=== PATIENT | female | born 1985 | race Caucasian/White ===

== ENCOUNTER 2016-11-21 11:48 | Inpatient (IN) | payer BC ==
[~2016-11-21] VITALS: Ht 168.9 cm; Wt 103.5 kg
[2016-11-21] MEDS ORDERED: LACTATED RINGER'S 1000ML 1,000 ML IV PRN (12:05)
[2016-11-21] MEDS ORDERED: PATIENT'S ALLERGY INFO NEEDS ENTERED SCH (12:15)
[2016-11-21] MEDS ORDERED: LACTATED RINGER'S 1000ML 500 ML IV PRN ×2 (12:22→22:58)
[2016-11-21] MEDS ORDERED: OXYTOCIN 30 UNITS/500ML NSS IV PRN (12:30)
[2016-11-21 13:04] LABS: HEMATOCRIT 37.9 % (37-47); MEAN CELL VOLUME 86.7 fL (80-100); MEAN CORPUSCULAR HEMOGLOBIN 29.7 pg (25-34); MEAN CORPUSCULAR HGB CONC 34.3 g/dl (32-36); MEAN PLATELET VOLUME 11.8 fL (7.4-10.4); PLATELET COUNT 150 K/uL (130-400); RED BLOOD COUNT 4.37 M/uL (4.2-5.4); WHITE BLOOD COUNT 12.38 K/uL (4.8-10.8)
[2016-11-21 15:54] VITALS: Ht 168.9 cm; Wt 103.5 kg
[2016-11-21] MEDS ORDERED: PRENTAB26 PO (15:58)
[2016-11-21] MEDS: BUTORPHANOL TARTRATE 1 MG/ML VIAL IV PRN ×2 (16:41→18:58)
[2016-11-21] MEDS: LACTATED RINGER'S 1000ML 1,000 ML IV SCH ×2 (19:12→23:09)
[2016-11-21] MEDS ORDERED: FENTANYL CITRATE INJ 50 MCG/1 ML 2 ML VIAL ONE (21:53)
[2016-11-21] MEDS ORDERED: BUPIVACAINE 0.25% 30 ML VIAL ONE (21:53)
[2016-11-21] MEDS ORDERED: FENTANYL 2MCG/ML ROPIV 1.25MG/ML 100ML BAG EPI ONE (21:53)
[2016-11-21] MEDS ORDERED: EpHEDrine SULFATE INJ 50 MG/ML AMP ONE (21:53)
[2016-11-21] MEDS ORDERED: NALOXONE HCL INJ 1 MG in SODIUM CHLORIDE 0.9% 1000ML 1,000 ML IV PRN (22:58)
[2016-11-21] MEDS ORDERED: DiphenhydrAMINE HCL 50 MG/ML VIAL IV PRN (23:00)
[2016-11-21] MEDS ORDERED: PROMETHAZINE HCL INJ 6.25 MG in SODIUM CHLORIDE 0.9% 50ML 50 ML IV PRN (23:00)
[2016-11-21] MEDS ORDERED: NALBUPHINE HCL INJ 10 MG/ML AMP IV PRN (23:00)
[2016-11-21] MEDS ORDERED: FENTANYL 2MCG/ML ROPIV 1.25MG/ML 100ML BAG EPI PRN (23:00)
[2016-11-21] MEDS ORDERED: ONDANSETRON INJ 2 MG/ML 2 ML VIAL IV PRN (23:00)
[2016-11-21] MEDS ORDERED: NALOXONE HCL INJ 0.4 MG/1 ML VIAL/CARP IV PRN (23:00)
[2016-11-21] MEDS ORDERED: EpHEDrine SULFATE INJ 50 MG/ML AMP IV PRN (23:00)
--- NOTE | 2016-11-21 23:22 | HISTORY & PHYSICAL EXAMINATION ---
DATE OF ADMISSION: 11/21/2016 CHIEF COMPLAINT: Oligohydramnios and postdates. HISTORY OF PRESENT ILLNESS: The patient is a 31-year-old 1, para 0, at 41 weeks and 3 days gestation, who was sent over from labor and delivery for induction of labor secondary to oligohydramnios and postdates. At today's office visit, she had an ultrasound with an RUPAL of 3.6 and a nonstress test that was reactive. On admission, she was found to be 3 cm dilated, 70% effaced, and -2 station. heart tones are category 1. Her care has been uncomplicated and she is GBS negative. PAST MEDICAL HISTORY: The patient denies any previous medical history. PAST SURGICAL HISTORY: She had her wisdom teeth extracted. SOCIAL HISTORY: The patient denies tobacco, alcohol or drug use. MEDICATIONS: vitamins. ALLERGIES: LAVENDER OIL, ASPIRIN, CODEINE. LABORATORY DATA: Blood type is A positive, group B strep negative, rubella immune, hepatitis B surface antigen negative, RPR nonreactive. PHYSICAL EXAMINATION: VITAL SIGNS: Blood pressure is 136/65, heart rate of 89, respiration rate of 18, temperature of 98.1. GENERAL: The patient is awake, alert and oriented x3. She is in no acute distress. HEART: Regular rate and rhythm. LUNGS: Clear to auscultation bilaterally. ABDOMEN: Gravid uterus, appropriate for gestational age. Bowel sounds present x4. EXTREMITIES: No clubbing, cyanosis or calf tenderness. VAGINA: She is 3 cm, 70% effaced, and -2 station. heart tones category 1. ASSESSMENT AND PLAN: A 31-year-old 1, para 0, at 41 weeks and 3 days gestation, will be admitted to labor and delivery for induction of labor secondary to oligohydramnios and postdates. Will begin with oxytocin per protocol. She may have her epidural upon request and anticipate vaginal delivery. [facility]
[2016-11-22] VITALS (19 sets, daily range): BP systolic 122–147; BP diastolic 64–89; PULSE 66–88; TEMP 36.5–37.3; O2SAT 97–100
[2016-11-22] MEDS ORDERED: CEFAZOLIN IV 3,000 MG in DEXTROSE 5% 50ML 50 ML IV SCH (06:00)
[2016-11-22] MEDS ORDERED: CITRIC ACID/SODIUM CITRATE 15 ML UDC PO ONE (06:00)
[2016-11-22] MEDS ORDERED: LIDOCAINE/EPINEPHRINE 2% 1:200,000 20 ML SDV ONE (06:18)
[2016-11-22] MEDS ORDERED: OXYTOCIN INJ 10 UNITS/ML VIAL ONE ×4 (06:18→07:00)
[2016-11-22] MEDS ORDERED: FENTANYL CITRATE INJ 50 MCG/1 ML 2 ML VIAL ONE (06:19)
[2016-11-22] MEDS ORDERED: MoRPHine SULFATE PF 1 MG/ML 10 ML AMP/VIAL ONE (06:19)
[2016-11-22] MEDS ORDERED: PHENYLEPHRINE 100MCG/ML 5ML SYR ONE (06:37)
[2016-11-22] MEDS ORDERED: KETOROLAC TROMETHAMINE 30 MG/ML VIAL ONE (07:01)
[2016-11-22] MEDS ORDERED: LACTATED RINGER'S 1000ML 1,000 ML IV SCH (07:09)
[2016-11-22] MEDS ORDERED: KETOROLAC TROMETHAMINE 30 MG/ML VIAL IV. PRN ×2 (07:15→07:30)
[2016-11-22] MEDS ORDERED: DIPHTHERIA/TETANUS/PERTUSSIS 0.5 ML SYR/VIAL IM. ONE (07:15)
[2016-11-22] MEDS ORDERED: ZOLPIDEM TARTRATE 5 MG TAB PO PRN (07:15)
[2016-11-22] MEDS ORDERED: SUPERCREAM 0.870 % 15GM JAR EXT PRN (07:15)
[2016-11-22] MEDS ORDERED: BENZOCAINE 20% AER SPR 82.5 GM CAN EXT PRN (07:15)
[2016-11-22] MEDS ORDERED: SENNA 8.6 MG TAB PO PRN (07:15)
[2016-11-22] MEDS ORDERED: MAGNESIUM HYDROXIDE SUSP 30 ML UDC PO PRN (07:15)
[2016-11-22] MEDS ORDERED: LANOLIN OINT EXT PRN ×2 (07:15)
[2016-11-22] MEDS ORDERED: ONDANSETRON INJ 2 MG/ML 2 ML VIAL IV PRN (07:15)
[2016-11-22] MEDS ORDERED: OXYCODONE/ACETAMINOPHEN 5-325 TAB PO PRN ×2 (07:15)
[2016-11-22] MEDS ORDERED: HYDROCORTISONE ACETATE 25 MG SUPP PR PRN (07:15)
--- NOTE | 2016-11-22 07:15 | [facility] Post Operative Brief Note ---
Immediate Operative Summary Operative Date November 22, 2016. Pre-Operative Diagnosis IUP 41.4, oligohydramnios, Interolerance to Labor Post-Operative Diagnosis Same Procedure(s) Performed Primary Caesarean Section of Life Female child at [address] Reddy Sewing Machine Tester Surgeon(s) Prema Moss RN, Dr. Brar Estimated Blood Loss 500 Findings Patient delivered a viable female infant at 0628 via primary section in the vertex position. APGARs and weight pending. Meconium stained fluid noted. Cord blood and gases obtained. Intact placenta with 3 VC delivered manually and sent to pathology. Grossly normal uterus and bilateral tubes and ovaries noted. Patient tolerated the surgery well and was sent to recovery with stable vital signs. Fluids (cc crystalloids) 1500 Specimens Placenta Exam Cord Blood cord gases Drains Borges to gravity Anesthesia Epidural bolus Complication(s) None Disposition L&D
[2016-11-22] MEDS ORDERED: MEPERIDINE HCL 25 MG/ML CARP IV PRN (07:30)
[2016-11-22] MEDS ORDERED: MoRPHine SULFATE 2 MG/ML CARP IV PRN (07:30)
[2016-11-22] MEDS ORDERED: NO NARCOTICS OR SEDATIVES SCH (07:30)
[2016-11-22] MEDS ORDERED: CONTINUE MEDICATION ONE (07:30)
[2016-11-22] MEDS ORDERED: DiphenhydrAMINE HCL 50 MG/ML VIAL IV PRN (07:30)
[2016-11-22] MEDS ORDERED: MoRPHine SULFATE PF 1 MG/ML 10 ML AMP/VIAL EPI PRN (07:30)
--- NOTE | 2016-11-22 07:31 | Anesthesia Procedure Note ---
Anesthesia Epidural Removal Nt Date & Time November 22, 2016 at 07:31 Vital Signs Pain Intensity: 0.0 Notes Mental Status: alert / awake / arousable, participated in evaluation Nausea / Vomiting: adequately controlled Pain: adequately controlled Airway Patency, RR, SpO2: stable & adequate BP & HR: stable & adequate Hydration State: stable & adequate Neuraxial Anesthesia: was administered Anesthetic Complications: no major complications apparent, pt satisfied with anesthetic care Epidural: removed without complications, with tip intact
[2016-11-22] MEDS: DOCUSATE SODIUM 100 MG CAP PO SCH ×2 (08:00→20:13)
[2016-11-22] MEDS: PRENATAL VITAMIN TAB PO SCH (08:00)
[2016-11-22] MEDS: FERROUS SULFATE 325 MG TAB PO SCH (08:00)
[2016-11-22] MEDS: OXYTOCIN INJ 30 UNITS in LACTATED RINGER'S 1000ML 1,000 ML IV SCH ×2 (08:09→16:53)
--- NOTE | 2016-11-22 08:19 | OPERATIVE REPORT ---
DATE OF OPERATION: 11/22/2016 PREOPERATIVE DIAGNOSES: 1. Intrauterine at 41 weeks and 4 days gestation. 2. Oligohydramnios. 3. intolerance to labor. POSTOPERATIVE DIAGNOSES: Same. OPERATIVE PROCEDURE: Primary low transverse section. SURGEON: Dr. Reddy. SCIENCE TUTOR: Prema Moss RN and Dr. Brar. ANESTHESIA: Epidural bolus. ESTIMATED BLOOD LOSS: 500 mL. IV FLUIDS: 1500 mL crystalloids. URINE OUTPUT: 200 mL clear yellow urine. SPECIMENS: Placenta, cord blood and cord gases obtained. DRAINS: Borges to gravity. COMPLICATIONS: None. DISPOSITION: To labor and delivery. OPERATIVE FINDINGS: The patient delivered a viable female infant at 6:28 a.m. on 11/22/2016 via primary section in the vertex position. Apgars and weight were pending. Please see fraternity adviser's notes for further baby assessment. Meconium stained fluid noted. Cord blood and gases obtained, intact placenta with 3-vessel cord was delivered manually and sent to pathology at 6:30 a.m. Grossly normal uterus and bilateral tubes and ovaries were noted. The patient tolerated the surgery well and was sent to recovery with stable vital signs. INDICATIONS FOR PROCEDURE: The patient is a 31-year-old 1, para 0 at 41 weeks and 4 days gestation who presented to labor and delivery on the afternoon of 11/21/2016 for an induction of labor secondary to oligohydramnios with an RUPAL of 3.6 in the office. On arrival, she was found to be 3 cm, 60% effaced and -3 station. Oxytocin was began per protocol. She received an epidural for anesthesia. Artificial rupture of membranes was performed at 1828 with light meconium stained fluid noted. She reached 9.5 cm, 100% effaced and 0 station. Due to prolonged decelerations and late decelerations, the decision was made to proceed with a primary section. Risks, benefits and alternatives were discussed with the patient and informed consent was obtained. OPERATIVE PROCEDURE IN DETAIL: The patient was taken to the operating room where her epidural was bolused. She was then placed in the dorsal supine position with a left lateral tilt and was prepped and draped in a manner appropriate for the procedure. Once anesthesia was found to be adequate, a Pfannenstiel skin incision was made 2 fingerbreadths above the pubic symphysis and was carried down through to a layer of the rectus fascia. The fascia was nicked in the midline and extended bilaterally with curved Lawson scissors. The superior aspect of the fascial incision was grasped with Bridget clamps, elevated, and the rectus muscles were dissected off with the use of the curved Lawson scissors and electrocautery. Likewise, the inferior aspect of the fascial incision was grasped with Bridget clamps, elevated, and the rectus muscles were dissected off with the use of the curved Lawson scissors and electrocautery. The rectus muscles were in midline and the peritoneum was grasped with hemostats x2 and entered with Metzenbaum scissors. Peritoneal incision was then extended cephalocaudally with gentle traction. The bladder blade was then placed within the abdomen. The vesicouterine peritoneum was identified and a bladder flap was created with Metzenbaum scissors and digital traction. The bladder flap was reincorporated beneath the [place] blade. A transverse incision was made on the uterus and extended bilaterally with digital traction. The head was then identified and delivered through the incision along with the rest of the body. Nuchal cord x1 was reduced at delivery. Baby was bulb suctioned at delivery. Cord was clamped x2 and cut. The baby was immediately handed to an awaiting fraternity adviser for further evaluation and management. Please see their notes for baby assessment. Cord blood and gases were obtained along with cord blood. An intact placenta with 3-vessel cord was then delivered through the incision manually. The uterus was then exteriorized and wrapped in a moist laparotomy sponge. The uterus was then cleared of any trailing membranes and debris with the laparotomy sponge. The incision was then grasped with ring forceps at 4 quadrants and was suture-ligated with 0 Vicryl suture in a continuous locking fashion. A second 0 Vicryl suture was used in imbricating fashion to ensure hemostasis. Any residual bleeding was suture-ligated with 0 Vicryl suture in a [id number] interrupted fashion. The posterior cul-de-sac was then irrigated with warm saline solution. Attention to the uterine incision was performed noting excellent hemostasis. The bladder flap was reapproximated to the lower uterine segment with 3-0 Vicryl suture in a continuous running fashion. The uterus was then placed back within its normal anatomic position within the abdomen. The case anterior cul-de-sac was then irrigated with warm saline solution. Again, the uterine incision was noted to be hemostatic. All instruments were then removed from the abdomen. The peritoneum was then grasped with Heather clamps and was closed with 2-0 Vicryl suture in continuous running fashion. The rectus fascia was then closed with 0 Vicryl suture in continuous running fashion. Subcutaneous tissue was reapproximated with 2-0 Vicryl suture in continuous running fashion. Skin was then closed with doreen. Excellent hemostasis was noted through all tissue layers. All sponge and instrument counts were found to be correct x2. The patient tolerated the procedure well and was sent to recovery with stable vital signs. I attest to the content of the Intraoperative Record and any orders documented therein. Any exceptio ns are noted below.
[2016-11-22] MEDS: SIMETHICONE 80 MG CHEW PO SCH ×4 (09:00→20:13)
--- NOTE | 2016-11-22 13:23 | Anesthesiology Progress Note ---
Anesthesia Post Op Note Date & Time November 22, 2016 at 13:23 Vital Signs Pain Intensity: 0.0 Notes Mental Status: alert / awake / arousable, participated in evaluation Pt Amnestic to Procedure: Yes Nausea / Vomiting: adequately controlled Pain: adequately controlled Airway Patency, RR, SpO2: stable & adequate BP & HR: stable & adequate Hydration State: stable & adequate Neuraxial Anesthesia: was administered, sensory block resolved Anesthetic Complications: no major complications apparent
--- NOTE | 2016-11-22 21:17 | OB/GYN Progress Note ---
TAX REPRESENTATIVE Progress Note Date of Service: November 22, 2016. Patient is seen and examined She c/o rash on skin of her abdomen, over the dressing Started 1/2 hour ago, not itchy She has been itchy all over her body No CP/SOB/ Dizziness Pain is under control She visited her bay in nursery Date Time Temp Pulse Resp B/P Pulse Ox O2 Delivery O2 Flow Rate FiO2 11/22/16 20:10 36.9 88 20 147/89 Room Air 11/22/16 19:00 18 100 11/22/16 18:02 16 100 11/22/16 17:00 16 100 11/22/16 16:00 16 98 11/22/16 15:50 36.7 72 16 122/69 98 Room Air 11/22/16 15:45 98 Room Air 11/22/16 15:00 18 97 11/22/16 14:00 18 100 11/22/16 13:00 18 97 11/22/16 12:00 18 98 11/22/16 11:10 37.1 66 18 129/64 97 Room Air 11/22/16 11:00 18 97 11/22/16 10:00 37.3 69 18 136/67 97 Room Air 11/22/16 10:00 18 97 11/22/16 10:00 97 Room Air Abd: soft, NT, fundus firm, below U, dressing dry and intact, there is mild erythematous diffuse rash over dressing up above umbilicus ( area of skin prep) Most likely allergic reaction to skin prep Will apply low dose 1% hydrocortisone cream and remove dressing in am 24 hour from surgery Continue to monitor closely
[2016-11-22] MEDS: HYDROCORTISONE 1% CR 30 GM TUBE EXT SCH (23:45)
[2016-11-23] VITALS (7 sets, daily range): BP systolic 132–137; BP diastolic 81–92; PULSE 81–94; TEMP 36.6–36.8; O2SAT 97–98
[2016-11-23] MEDS ORDERED: DC INTRASPINAL MORPHINE SCH (01:00)
[2016-11-23] MEDS: IBUPROFEN 600 MG TAB PO PRN ×4 (05:40→21:03)
[2016-11-23 06:13] LABS: BASO % 0.1 %; BASO ABS # 0.01 K/uL (0-0.2); COMPLETE YES; EOS % 0.2 %; HEMATOCRIT 30.3 % (37-47); IG% 0.2 %; LYMPH % 12.7 %; LYMPH ABS # 1.73 K/uL (1.2-3.4); MEAN CELL VOLUME 88.1 fL (80-100); MEAN CORPUSCULAR HEMOGLOBIN 30.5 pg (25-34); MEAN CORPUSCULAR HGB CONC 34.7 g/dl (32-36); MEAN PLATELET VOLUME 10.6 fL (7.4-10.4); MONO % 5.4 %; NEUT % 81.4 %; PLATELET COUNT 115 K/uL (130-400); RED BLOOD COUNT 3.44 M/uL (4.2-5.4); WHITE BLOOD COUNT 13.61 K/uL (4.8-10.8)
--- NOTE | 2016-11-23 07:32 | OB/GYN Progress Note ---
ALEMITE OPERATOR Progress Note Date of Service November 23, 2016. Subjective conversation w/ patient, physical exam Ambulation: ambulating normally Voiding: no voiding problems Passing Gas: Yes Diet Tolerance: Regular Diet Lochia: Small Feeding Type: Breast Feeding Pain: 07/26 Notes: Doing well, no concerns. Pain well controlled. Lochia minimal. Ambulating without difficulty. Tolerating regular diet, +flatus, -BM. Objective Vital Signs Date Time Temp Pulse Resp B/P Pulse Ox O2 Delivery O2 Flow Rate FiO2 11/23/16 04:50 36.8 94 18 137/89 98 Room Air 11/23/16 01:00 18 97 11/23/16 00:00 20 98 11/22/16 23:45 36.5 67 20 130/85 Room Air 11/22/16 23:45 98 Room Air 11/22/16 23:00 20 98 11/22/16 22:00 19 100 11/22/16 21:00 19 100 11/22/16 20:10 36.9 88 20 147/89 Room Air 11/22/16 20:00 18 98 11/22/16 19:00 18 100 11/22/16 18:02 16 100 11/22/16 17:00 16 100 11/22/16 16:00 16 98 11/22/16 15:50 36.7 72 16 122/69 98 Room Air 11/22/16 15:45 98 Room Air 11/22/16 15:00 18 97 11/22/16 14:00 18 100 11/22/16 13:00 18 97 11/22/16 12:00 18 98 11/22/16 11:10 37.1 66 18 129/64 97 Room Air 11/22/16 11:00 18 97 11/22/16 10:00 37.3 69 18 136/67 97 Room Air 11/22/16 10:00 18 97 11/22/16 10:00 97 Room Air Physical Exam General Appearance: WELL-APPEARING Respiratory/Chest: chest non-tender, lungs clear Cardiovascular: regular rate, rhythm Abdomen: normal bowel sounds, soft Fundus: Firm Incision Description: Clean, Dry & Intact Extremities: normal range of motion, no calf tenderness Laboratory Results Last 24 Hours Test 11/23/16 06:06 White Blood Count 13.61 K/uL Red Blood Count 3.44 M/uL Hemoglobin 10.5 g/dL Hematocrit 30.3 % Mean Corpuscular Volume 88.1 fL Mean Corpuscular Hemoglobin 30.5 pg Mean Corpuscular Hemoglobin Concent 34.7 g/dl Platelet Count 115 K/uL Mean Platelet Volume 10.6 fL Neutrophils (%) (Auto) 81.4 % Lymphocytes (%) (Auto) 12.7 % Monocytes (%) (Auto) 5.4 % Eosinophils (%) (Auto) 0.2 % Basophils (%) (Auto) 0.1 % Neutrophils # (Auto) 11.08 K/uL Lymphocytes # (Auto) 1.73 K/uL Monocytes # (Auto) 0.73 K/uL Eosinophils # (Auto) 0.03 K/uL Basophils # (Auto) 0.01 K/uL RDW Standard Deviation 47.1 fL RDW Coefficient of Variation 14.6 % Immature Granulocyte % (Auto) 0.2 % Immature Granulocyte # (Auto) 0.03 K/uL Assessment and Plan Post-Op Day Number: 1 Continue Routine Care: -Incision dressing removed and is c/d/i -Advance activity as tolerated. -Continue routine postop care
[2016-11-23] MEDS: DOCUSATE SODIUM 100 MG CAP PO SCH ×2 (08:08→20:05)
[2016-11-23] MEDS: FERROUS SULFATE 325 MG TAB PO SCH (08:08)
[2016-11-23] MEDS: PRENATAL VITAMIN TAB PO SCH (08:08)
[2016-11-23] MEDS: HYDROCORTISONE 1% CR 30 GM TUBE EXT SCH ×2 (08:09→20:06)
[2016-11-23] MEDS: SIMETHICONE 80 MG CHEW PO SCH ×4 (08:09→20:05)
[2016-11-23] MEDS: BISACODYL 5 MG TABEC PO SCH (22:15)
[2016-11-24 06:28] LABS: HEMATOCRIT 28.3 % (37-47)
[2016-11-24] MEDS ORDERED: BISACODYL 10 MG SUPP PR PRN (07:15)
[2016-11-24 07:30] VITALS: BP 125/81; PULSE 80; TEMP 36.6; O2SAT 99
[2016-11-24] MEDS: PRENATAL VITAMIN TAB PO SCH (07:34)
[2016-11-24] MEDS: FERROUS SULFATE 325 MG TAB PO SCH (07:34)
[2016-11-24] MEDS: HYDROCORTISONE 1% CR 30 GM TUBE EXT SCH ×2 (07:34→20:46)
[2016-11-24] MEDS: DOCUSATE SODIUM 100 MG CAP PO SCH ×2 (07:34→20:45)
[2016-11-24] MEDS: SIMETHICONE 80 MG CHEW PO SCH ×4 (07:34→20:46)
[2016-11-24] MEDS: IBUPROFEN 600 MG TAB PO PRN ×3 (07:35→22:34)
--- NOTE | 2016-11-24 09:02 | OB/GYN Progress Note ---
LANDSCAPE HORTICULTURE INSTRUCTOR Progress Note Date of Service November 24, 2016. Subjective conversation w/ patient, physical exam Ambulation: ambulating normally Voiding: no voiding problems Passing Gas: Yes Diet Tolerance: Clear Liquids Lochia: Moderate Feeding Type: Breast Feeding Review of Systems Constitutional: No chills, No fatigue, No fever, No problem reported, No sweats , No weakness, No weight loss Respiratory: No cough, No dyspnea at rest, No dyspnea on exertion, No hemoptysis, No problem reported, No shortness of breath, No sputum, No wheezing Cardiac: No PND, No chest pain, No claudication, No edema, No orthopnea, No palpitations, No problem reported Breast: No breast lump, No breast pain, No change in shape, No nipple discharge , No problem reported, No see HPI Abdomen: No GI bleeding, No constipation, No diarrhea, No nausea, No pain, No problem reported, No vomiting Female : No abnormal vaginal bleeding, No dysuria, No hematuria, No incontinence, No problem reported, No see HPI, No urinary frequency, No vaginal discharge Objective Vital Signs Date Time Temp Pulse Resp B/P Pulse Ox O2 Delivery O2 Flow Rate FiO2 11/24/16 07:30 36.6 80 18 125/81 99 Room Air 11/24/16 07:30 99 Room Air 11/23/16 23:45 36.6 81 20 137/84 98 Room Air 11/23/16 23:45 98 Room Air 11/23/16 16:00 36.7 91 18 137/92 Room Air 11/23/16 15:20 98 Room Air Physical Exam General Appearance: WELL-APPEARING, WD/WN Respiratory/Chest: chest non-tender, lungs clear, normal breath sounds, no respiratory distress, no accessory muscle use Cardiovascular: regular rate, rhythm, no edema, no gallop, no JVD, no murmur Abdomen: normal bowel sounds, non tender, soft, no organomegaly, no pulsatile mass Fundus: Firm Incision Description: Clean, Dry & Intact Extremities: normal range of motion, non-tender, normal inspection, no pedal edema, no calf tenderness Laboratory Results Last 24 Hours Test 11/24/16 06:06 Hemoglobin 9.7 g/dL Hematocrit 28.3 % Assessment and Plan Post-Op Day Number: 1 Continue Routine Care: c/sec day #2 pt doing well repeat H/H anticipate disch tomorrow
[2016-11-24 12:34] LABS: HEMATOCRIT 29.1 % (37-47)
[2016-11-24 15:30] VITALS: BP 145/82; PULSE 93; TEMP 36.8; O2SAT 99
[2016-11-24] MEDS: BISACODYL 5 MG TABEC PO SCH (22:34)
[2016-11-25 00:05] VITALS: BP 145/85; PULSE 87; TEMP 36.4; O2SAT 98
[2016-11-25 08:00] VITALS: BP 142/96; PULSE 91; O2SAT 98
[2016-11-25] MEDS: HYDROCORTISONE 1% CR 30 GM TUBE EXT SCH (08:00)
[2016-11-25] MEDS ORDERED: OXYC-57 PO (08:20)
--- NOTE | 2016-11-25 08:21 | Discharge Instructions ---
Discharge Instructions Date of Service November 25, 2016. Admission Reason for Admission: Oligohydramnios, Post Dates Discharge Discharge Diagnosis / Problem: term delivered Discharge Goals Goal(s): Routine recovery after Activity Recommendations Activity Limitations: as noted below Exercise/Sports Limitations: gradually increase as tolerated May Resume Sexual Activity: after follow-up appointment Shower/Bathe: no limitations Driving or Machine Use: . Instructions / Follow-Up Instructions / Follow-Up ACTIVITY RECOMMENDATIONS: * Gradual return to full activity over the next 2-3 weeks. * No lifting - nothing heavier than baby over the next 2-3 weeks. * Do not engage in vigorous exercise, sexual activity or sports until cleared by your physician. * Do not drive or operate any motorized equipment until cleared by your physician. * You may shower/bathe daily. BREAST CARE: If you are not breast feeding: * Wear a supportive bra 24 hours a day for one to two weeks. * Avoid stimulating your breasts and nipples as much as possible during the first few weeks after delivery. * When taking a shower, have the warm water hit your back, not breasts. * When your breasts feel full, apply ice packs. Usually three to four times a day helps ease the discomfort. * Take a mild pain medication (Tylenol/Motrin) when you are uncomfortable. If breast feeding: * Use breast milk to lubricate nipples. Lansinoh cream may be used for sore nipples. You do not need to remove cream prior to breast feeding. If using a different brand of cream, check the label for directions regarding removal of cream prior to nursing. * Wear a supportive bra. * If having problems with breasts or breast feeding, call a workday financials consultant or your health care provider. OVER THE COUNTER MEDICATION: * For discomfort or pain, you may use Acetaminophen (Tylenol), Ibuprofen (Advil ), or Naproxen (Aleve) following the package directions. * For constipation you may use Colace following the package directions. SPECIAL CARE INSTRUCTIONS: When you are discharged from the hospital, it is important for you to follow the instructions listed below: * During the first week at home, you should be able to care for yourself and your baby. In addition, the usual light household activities are encouraged. * Limit your activities to the way you feel. Do not try to clean the house or move furniture. Be sensible. * If you actively engage in sports and have done so up until the time of your delivery, you may resume these activities as soon as you feel able. This may take up to one month or even longer. Use good judgment. * Continue to take your vitamins for at least six weeks after the of your baby. * Your diet need not be limited unless you were on a special diet before your delivery. Breast-feeding mothers need around 2500 calories per day and at least 64-80 ounces of fluid per day (8 to 10 glasses). * You should eat foods from the four major food groups. Crash diets or fad diets are to be avoided. Eating lean meats, fresh fruits and vegetables, low-fat dairy products, high fiber foods and a regular exercise program, will help you get back to your pre- weight without putting your health at risk. * Constipation is sometimes a problem after delivery. Take a mild laxative as needed. If breast feeding, Milk of Magnesia is acceptable to use. You may use a suppository or Fleets enema if no episiotomy. * A daily shower or tub bath is suggested. Be sure to thoroughly and gently dry the perineum. * A bloody vaginal discharge will usually continue until around four weeks post . A small amount of bleeding may continue for as long as six weeks. Vaginal discharge changes from the bright red bleeding after delivery to pink then brownish and finally yellowish-pink before becoming white and disappearing. * Bleeding may increase with activity. Your first period may come in 4-8 weeks. If you are breast feeding, your period may be delayed even longer. * Kosse (sex) can begin whenever both you and your partner feel comfortable and do not have any form of genital infection. It is recommended that you wait at least six weeks for internal and external healing to occur. If you have questions, please talk to your health care practitioner. A condom should be used to prevent infection and . * Foreplay, gentle intercourse and lubrication is very important the first several times to prevent pain. A water-based lubricant such as K-Y jelly or Astroglide may be used. * Tampons and/or Douching should be avoided until after six weeks check-up. * If you have RH negative blood and your baby is RH positive, you will receive RHOGAM by injection prior to discharge. The nurse will give you a card to keep with you that has the date and place that you received RHOGAM after delivery. * During your care, you had a Rubella screen done to check for the presence of rubella antibodies in your blood. If your test was negative, you will receive a Rubella vaccine prior to discharge. This vaccine may cause a fever, soreness at the injection site and flu-like symptoms. If these symptoms persist, notify your health care practitioner. is not advised for three months after a Rubella vaccine. * Verbalizes understanding of car seat law as reviewed with patient nursing. * Car Seat hand-out given and reviewed with patient by nursing. * Shaken baby information reviewed with patient by nursing. Call you doctor if: * Heavy bleeding (saturating several pads an hour) or passing clots the size of your fist. * A fever >101 degrees F (38.3 degrees C) on two occasions four hours apart and /or chills. * Unusual pain in the pelvic or vaginal areas. Pain should improve each day . * Call the doctor for any increased redness, drainage or swelling around the incision and any pain unrelieved by prescribed pain medication. * Any signs or symptoms of phlebitis (possible blood clots forming in the veins ): leg pain, warm, red or swollen area on leg. * "Baby Blues" lasting longer than two weeks. If you have any questions or concerns, call your health care practitioner at . FOLLOW-UP VISIT: * Incision check (staple removal) in 1 week. Please call doctor's office at to set up appointment. * Please call the office at to schedule a 6 week examination. It is important you keep this appointment. * It is important for you to make arrangements for either yearly or twice yearly check-ups thereafter. Current Hospital Diet Patient's current hospital diet: Regular OB Diet Discharge Diet Recommended Diet: Regular OB Diet Procedures Procedures Performed: Primary Caesarean Section of Life Female child at 0628 Pending Studies Studies pending at discharge: no Medical Emergencies . Who to Call and When: Medical Emergencies: If at any time you feel your situation is an emergency, please call 911 immediately. . Non-Emergent Contact Non-Emergency issues call your: Primary Care Provider . . "Provider Documentation" section prepared by Mauri Pope. . VTE Core Measure Inpt VTE Proph given/why not?: Treatment not indicated
--- NOTE | 2016-11-25 08:24 | Surgery Progress Note ---
Surgery Progress Note Date of Service November 25, 2016. Subjective Post OP Day: 3 + ambulating, + diet, + feeling well, + flatus Objective Vital Signs: Date Time Temp Pulse Resp B/P Pulse Ox O2 Delivery O2 Flow Rate FiO2 11/25/16 00:05 98 Room Air 11/25/16 00:05 36.4 87 16 145/85 98 Room Air 11/24/16 20:50 Room Air 11/24/16 15:30 99 Room Air 11/24/16 15:30 36.8 93 18 145/82 99 Room Air General Appearance: no apparent distress Abdomen: non tender, non distended, soft Incision(s): clean, dry, intact Extremities: non-tender, normal inspection, no pedal edema, no calf tenderness Laboratory Results: Results Past 24 Hours Test 11/24/16 12:06 Range/Units Hemoglobin 9.6 12.0-16.0 g/dL Hematocrit 29.1 37-47 % Assessment & Plan regular diet POD#3 patient discharged home and will go to nesting
[2016-11-25] MEDS: IBUPROFEN 600 MG TAB PO PRN (08:32)
[2016-11-25] MEDS: DOCUSATE SODIUM 100 MG CAP PO SCH (08:32)
[2016-11-25] MEDS: PRENATAL VITAMIN TAB PO SCH (08:33)
[2016-11-25] MEDS: FERROUS SULFATE 325 MG TAB PO SCH (08:33)
[2016-11-25] MEDS: SIMETHICONE 80 MG CHEW PO SCH ×3 (08:33→18:17)
[2016-11-25 14:11] VITALS: TEMP 36.7
[2016-11-25 16:10] VITALS: BP 129/78; PULSE 87; TEMP 36.8; O2SAT 97
--- NOTE | 2016-12-09 11:11 | Discharge Summary ---
Discharge Summary Date of Service December 09, 2016. Discharge Summary Admission Date: November 21, 2016 at 12:15 Discharge Date: November 25, 2016 Discharge Disposition: Home Principal Diagnosis: IUP 41.4 weeks gestation, Oligohydramnios, intolerance to labor Procedures: Primary section Medication Reconciliation New Medications: Oxycodone/Acetaminophen 5MG/325MG (Percocet 5MG/325MG) Tab 1 TAB PO Q4H PRN for Pain - Pain Scale 1-5, #20 TAB PAIN Continued Medications: Multivit/Min/Iron/Fol Ac/Pren ( Vitamin) Tab 1 TAB PO DAILY, TAB Admission Information HPI (per Admitting provider): HISTORY OF PRESENT ILLNESS: The patient is a 31-year-old 1, para 0, at 41 weeks and 3 days gestation, who was sent over from labor and delivery for induction of labor secondary to oligohydramnios and postdates. At today's office visit, she had an ultrasound with an RUPAL of 3.6 and a nonstress test that was reactive. On admission, she was found to be 3 cm dilated, 70% effaced, and -2 station. heart tones are category 1. Her care has been uncomplicated and she is GBS negative. Physical Exam (per Admitting): General Appearance: WD/WN, no apparent distress Respiratory/Chest: chest non-tender, lungs clear Cardiovascular: regular rate, rhythm Abdomen/GI: normal bowel sounds, soft Neurologic/Psych: alert, oriented x 3 Skin: normal color, warm/dry, no rash Hospital Course Patient underwent a primary section secondary to intolerance to labor. She made it to 9.5cm, 100% effaced, 0 station. Her surgery went well without complications. Her postop course was uneventful. Her guo catheter was removed on POD # 1. Her diet and activity were advanced as tolerated. Her incision remained clean,dry and intact. She was discharged home on POD #3 Nov 25 2016 with discharge instructions. Total time spent on discharge = 20mins This includes examination of the patient, discharge planning, medication reconciliation, and communication with other providers. Discharge Instructions ACTIVITY RECOMMENDATIONS: * Gradual return to full activity over the next 2-3 weeks. * No lifting - nothing heavier than baby over the next 2-3 weeks. * Do not engage in vigorous exercise, sexual activity or sports until cleared by your physician. * Do not drive or operate any motorized equipment until cleared by your physician. * You may shower/bathe daily. BREAST CARE: If you are not breast feeding: * Wear a supportive bra 24 hours a day for one to two weeks. * Avoid stimulating your breasts and nipples as much as possible during the first few weeks after delivery. * When taking a shower, have the warm water hit your back, not breasts. * When your breasts feel full, apply ice packs. Usually three to four times a day helps ease the discomfort. * Take a mild pain medication (Tylenol/Motrin) when you are uncomfortable. If breast feeding: * Use breast milk to lubricate nipples. Lansinoh cream may be used for sore nipples. You do not need to remove cream prior to breast feeding. If using a different brand of cream, check the label for directions regarding removal of cream prior to nursing. * Wear a supportive bra. * If having problems with breasts or breast feeding, call a sediment remediation consultant or your health care provider. OVER THE COUNTER MEDICATION: * For discomfort or pain, you may use Acetaminophen (Tylenol), Ibuprofen (Advil ), or Naproxen (Aleve) following the package directions. * For constipation you may use Colace following the package directions. SPECIAL CARE INSTRUCTIONS: When you are discharged from the hospital, it is important for you to follow the instructions listed below: * During the first week at home, you should be able to care for yourself and your baby. In addition, the usual light household activities are encouraged. * Limit your activities to the way you feel. Do not try to clean the house or move furniture. Be sensible. * If you actively engage in sports and have done so up until the time of your delivery, you may resume these activities as soon as you feel able. This may take up to one month or even longer. Use good judgment. * Continue to take your vitamins for at least six weeks after the of your baby. * Your diet need not be limited unless you were on a special diet before your delivery. Breast-feeding mothers need around 2500 calories per day and at least 64-80 ounces of fluid per day (8 to 10 glasses). * You should eat foods from the four major food groups. Crash diets or fad diets are to be avoided. Eating lean meats, fresh fruits and vegetables, low-fat dairy products, high fiber foods and a regular exercise program, will help you get back to your pre- weight without putting your health at risk. * Constipation is sometimes a problem after delivery. Take a mild laxative as needed. If breast feeding, Milk of Magnesia is acceptable to use. You may use a suppository or Fleets enema if no episiotomy. * A daily shower or tub bath is suggested. Be sure to thoroughly and gently dry the perineum. * A bloody vaginal discharge will usually continue until around four weeks post . A small amount of bleeding may continue for as long as six weeks. Vaginal discharge changes from the bright red bleeding after delivery to pink then brownish and finally yellowish-pink before becoming white and disappearing. * Bleeding may increase with activity. Your first period may come in 4-8 weeks. If you are breast feeding, your period may be delayed even longer. * [place] (sex) can begin whenever both you and your partner feel comfortable and do not have any form of genital infection. It is recommended that you wait at least six weeks for internal and external healing to occur. If you have questions, please talk to your health care practitioner. A condom should be used to prevent infection and . * Foreplay, gentle intercourse and lubrication is very important the first several times to prevent pain. A water-based lubricant such as K-Y jelly or Astroglide may be used. * Tampons and/or Douching should be avoided until after six weeks check-up. * If you have RH negative blood and your baby is RH positive, you will receive RHOGAM by injection prior to discharge. The nurse will give you a card to keep with you that has the date and place that you received RHOGAM after delivery. * During your care, you had a Rubella screen done to check for the presence of rubella antibodies in your blood. If your test was negative, you will receive a Rubella vaccine prior to discharge. This vaccine may cause a fever, soreness at the injection site and flu-like symptoms. If these symptoms persist, notify your health care practitioner. is not advised for three months after a Rubella vaccine. * Verbalizes understanding of car seat law as reviewed with patient nursing. * Car Seat hand-out given and reviewed with patient by nursing. * Shaken baby information reviewed with patient by nursing. Call you doctor if: * Heavy bleeding (saturating several pads an hour) or passing clots the size of your fist. * A fever >101 degrees F (38.3 degrees C) on two occasions four hours apart and /or chills. * Unusual pain in the pelvic or vaginal areas. Pain should improve each day . * Call the doctor for any increased redness, drainage or swelling around the incision and any pain unrelieved by prescribed pain medication. * Any signs or symptoms of phlebitis (possible blood clots forming in the veins ): leg pain, warm, red or swollen area on leg. * "Baby Blues" lasting longer than two weeks. If you have any questions or concerns, call your health care practitioner at . FOLLOW-UP VISIT: * Incision check (staple removal) in 1 week. Please call doctor's office at to set up appointment. * Please call the office at to schedule a 6 week examination. It is important you keep this appointment. * It is important for you to make arrangements for either yearly or twice yearly check-ups thereafter.
== END 2016-11-25 18:30 | disposition other institution (70) | DRG 766 ==
LOC: C.OPB 11:48 → C.LD 11:48 → C.OPB 12:11 → C.LD 12:15 → C.OBG 11-22 09:16
PROVIDERS: ADMIT Obstetrics & Gynecology; ATTEND Obstetrics & Gynecology
PROC: 10D00Z1 Extraction of Products of Conception, Low, Open Approach (ICD-10-PCS; principal; 2016-11-22 06:16)
PROC: 10907ZC Drainage of Amniotic Fluid, Therapeutic from Products of Conception, Via Natural or Artificial Opening (ICD-10-PCS; principal; 2016-11-22 06:16)
PROC: 3E033VJ Introduction of Other Hormone into Peripheral Vein, Percutaneous Approach (ICD-10-PCS; principal; 2016-11-22 06:16)
DX: O48.0 Post-term pregnancy (principal); O76 Abnormality in fetal heart rate and rhythm complicating labor and delivery; O77.0 Labor and delivery complicated by meconium in amniotic fluid; O69.81X0 Labor and delivery complicated by cord around neck, without compression, not applicable or unspecified; Z3A.41 41 weeks gestation of pregnancy; Z37.0 Single live birth; O90.89 Other complications of the puerperium, not elsewhere classified; L29.9 Pruritus, unspecified; T78.8XXA Other adverse effects, not elsewhere classified, initial encounter; O9A.213 Injury, poisoning and certain other consequences of external causes complicating pregnancy, third trimester

== ENCOUNTER 2018-12-11 05:41 | Inpatient (IN) ==
--- NOTE | 2018-11-26 16:56 | PAT Medication Instructions ---
Medication Instructions Date of Service November 26, 2018 Home Medications PNV cmb#95-ferrous fumarate-FA [] 1 tab PO QAM fluticasone furoate [Flonase] 1 spray INTRANASAL DAILY NEEDED DO NOT take the morning of surgery PNV cmb#95-ferrous fumarate-FA [] 1 tab PO QAM fluticasone furoate [Flonase] 1 spray INTRANASAL DAILY NEEDED Take morning of surgery NOTHING TO EAT OR DRINK AFTER MIDNIGHT Take evening before surgery fluticasone furoate [Flonase] 1 spray INTRANASAL DAILY NEEDED Other Notes If you have any questions please call us at [phone] or [phone] or [phone] or [phone]
--- NOTE | 2018-11-27 12:15 | Anesthesiology Consultation ---
Date of Service November 27, 2018 Assessment & Plan (1) Encounter for pre-operative examination: Chart Review Chart Review: Acceptable Risk for Surgery and Patient seen in Pre Admission Testing Teaching & Discussion Instructed NPO after midnight before surgery, except medications with 15 cc of water. Medication instructions provided according to the PAT guidelines. 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 Concerning heart tons and swallowed meconium. History of tooth extraction WISDOM TEETH Past Anesthesia History No Hx of Anesthesia Complications and No Family Hx of Anesthesia Complications History of PONV No Hx of PONV and Hx of Motion Sickness Social History Smoking Status: Never smoker Do You Dip or Chew Tobacco: No Hx Alcohol Use: Yes (RARELY NON ) Alcohol type: wine Hx Substance Use: No substance use type: does not use Review of Systems Pt denies any recent chest pain, shortness of breath, palpitations, cough, fever or URI. Physical Exam Vital Signs BP: 123/79 P: 85bpm SPO2: 98% RA T: 98.6 F R: 12 ENMT Mouth: no dental restorations, no chipped teeth and no loose teeth Thyromental Distance: > or= 3.5 Finger Breadths (4) Mallampati Class: I Neck normal visual inspection; neck extension not limited Respiratory normal respiratory effort Auscultation: lungs clear to auscultation bilaterally Cardiovascular Rate/Rhythm: regular rate and regular rhythm Heart Sounds: no murmur Extremities: no edema
--- OUTSIDE RECORDS SUMMARY | 2018-12-11 05:45 | External Medical Summary | Continuity of Care Document ---
:1985 Author Name Josesito Bach Address Unavailable Unavailable , Care Team Providers Name Role Phone Georgina Bach Unavailable [email or web address] Payam VASQUEZ Unavailable Unavailable Unavailable Unavailable Unavailable Assessments Assessed Problems:Acute bronchitisViral syndrome Problems Viral syndrome (079.99) (B34.9) Acute bronchitis (466.0) (J20.9) Abdominal pain (789.00) (R10.9) Allergies and Adverse Reactions No Known Drug Allergies (Allergy) Medications Benzonatate 200 MG Oral Capsule; one cap everfy 6-8 hr s as needed for cough Isreal Erickson Start: 29-Jul-2014 Quantity: 30 Refills: 1 predniSONE 10 MG Oral Tablet; one tab 3x a day, divide d doses,x 5 days Isreal Erickson Start: 29-Jul-2014 Quantity: 15 Refills: 0 Procedures Procedures not documented Immunizations Immunizations not documented Social History - Smoking Status Never smoker Interventions Medication ChangesBenzonatate 200 MG Oral Capsule - StartpredniSONE 10 MG Oral Tablet - StartDiscussion/SummaryPatient has most likely a viral bronchitis she's treated it with rest. 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 Patient's chief concern is the burning in her chest and discomfort with cough. She does not have a barky cough here. She's put on low-dose prednisone for short period and benzoin at take 4 cough suppression. Advise fluids nasal saline and rest off work for the next 2 days. Advise that she check into the D DTaP vaccine since she is due for tetanus booster and consider flu VAX next year. Patient is agreeable to this plan. Plan of Treatment Planned Observations Planned Goals not documented Results No Known Results Results not documented Encounters Appointment; Roman Erickson M.D. 29-Jul-2014 15:00 Encounter Diagnosis: Problem not documented
[2018-12-11] MEDS ORDERED: CEFAZOLIN 2,000 MG in SYRINGE 0 ML IV SCH (06:00)
[2018-12-11] MEDS ORDERED: CITRIC ACID/SODIUM CITRATE 15 ML UDC PO SCH (06:00)
[2018-12-11] MEDS ORDERED: LACTATED RINGER'S 1,000 ML IV SCH (06:00)
[2018-12-11 06:02] LABS: Basophils # (auto) 0.01 K/uL (0-0.2); Basophils % (auto) 0.1 %; Eosinophils # (auto) 0.08 K/uL (0-0.5); Eosinophils % (auto) 0.8 %; Hematocrit (blood only) 35.8 % (37-47); Hemoglobin 12.5 g/dL (12.0-16.0); Immature Granulocytes # (auto) 0.03 K/uL (0.00-0.02); Immature Granulocytes % (auto) 0.3 %; Lymphocytes # (auto) 1.89 K/uL (1.2-3.4); Lymphocytes % (auto) 19.8 %; Mean Corpuscular Volume 85.6 fL (80-100); Mean Platelet Volume 10.5 fL (7.4-10.4); Monocytes # (auto) 0.62 K/uL (0.11-0.59); Monocytes % (auto) 6.5 %; Neutrophils # (auto) 6.92 K/uL (1.4-6.5); Neutrophils % (auto) 72.5 %; Platelet Count 140 K/uL (130-400); RDW Coefficient of Variation 13.4 % (11.5-14.5); RDW Standard Deviation 41.8 fL (36.4-46.3); Red Blood Count 4.18 M/uL (4.2-5.4); White Blood Count 9.55 K/uL (4.8-10.8)
[2018-12-11 06:03] LABS: Mean Corpuscular Hgb Conc 34.9 g/dL (32-36)
[2018-12-11] MEDS ORDERED: OXYTOCIN 10 UNITS/ML VIAL ONE (06:49)
[2018-12-11] MEDS ORDERED: fentaNYL citrate 100 MCG/2 ML VIAL ONE (06:53)
[2018-12-11] MEDS ORDERED: MoRPHine SULFATE PF 1 MG/ML 10 ML AMP/VIAL ONE (06:53)
--- NOTE | 2018-12-11 10:06 | History & Physical Bridge Note ---
Date of Service December 11, 2018 History & Physical Bridge Note I have examined the patient, reviewed the History & Physical and in the interval since the performance of the History & Physical I have noted the following changes of clinical significance: no changes noted
[2018-12-11] MEDS ORDERED: MoRPHine SULFATE PF 1 MG/ML 10 ML AMP/VIAL INT SPINAL ONE (11:07)
[2018-12-11] MEDS ORDERED: NALOXONE HCL 1 MG in SODIUM CHLORIDE 0.9% 1000ML 1,000 ML IV PRN (11:07)
[2018-12-11] MEDS ORDERED: ePHEDrine sulfate 50 MG/ML AMP IV PRN (11:07)
[2018-12-11] MEDS ORDERED: NALOXONE HCL 0.08 MG in SYRINGE 1.8 ML IV PRN (11:07)
[2018-12-11] MEDS ORDERED: NALBUPHINE HCL INJ 10 MG/ML AMP IV PRN (11:07)
[2018-12-11] MEDS ORDERED: MoRPHine SULFATE 2 MG/ML CARP IV PRN (11:07)
[2018-12-11] MEDS ORDERED: NALOXONE HCL 0.4 MG/1 ML VIAL/CARP IV PRN (11:07)
[2018-12-11] MEDS ORDERED: LACTATED RINGER'S 500 ML IV PRN (11:07)
[2018-12-11] MEDS ORDERED: ONDANSETRON INJ 2 MG/ML 2 ML VIAL IV PRN (11:07)
[2018-12-11] MEDS ORDERED: DiphenhydrAMINE HCL 50 MG/ML VIAL IV PRN (11:07)
[2018-12-11] MEDS ORDERED: MEPERIDINE HCL 25 MG/ML CARP IV PRN (11:07)
[2018-12-11] MEDS ORDERED: SODIUM CHLORIDE 0.9% 1000ML 1,000 ML IV SCH (11:15)
[2018-12-11] MEDS ORDERED: NO NARCOTICS OR SEDATIVES SCH (11:15)
[2018-12-11] MEDS ORDERED: DC INTRASPINAL MORPHINE SCH (11:15)
[2018-12-11] MEDS ORDERED: PHENYLEPHRINE 100MCG/ML 5ML SYR ONE (11:19)
[2018-12-11] MEDS ORDERED: METHYLERGONOVINE MALEATE 0.2 MG/ML AMP ONE (11:39)
[2018-12-11] MEDS ORDERED: ONDANSETRON INJ 2 MG/ML 2 ML VIAL ONE (11:40)
[2018-12-11] MEDS ORDERED: OXYTOCIN 10 UNITS/ML VIAL IM ONE (11:43)
[2018-12-11] MEDS ORDERED: miSOPROStol 200 MCG TAB PR ONE (12:20)
[2018-12-11] MEDS ORDERED: MAGNESIUM HYDROXIDE SUSP 30 ML UDC PO PRN (12:26)
[2018-12-11] MEDS ORDERED: HYDROCORTISONE ACETATE 25 MG SUPP PR PRN (12:26)
[2018-12-11] MEDS ORDERED: BENZOCAINE 20% AER SPR 82.5 GM CAN EXT PRN (12:26)
[2018-12-11] MEDS ORDERED: SENNA 8.6 MG TAB PO PRN (12:26)
[2018-12-11] MEDS ORDERED: SUPERCREAM 0.870% 15 GM JAR EXT PRN (12:26)
[2018-12-11] MEDS ORDERED: DIPHTHERIA/TETANUS/PERTUSSIS 0.5 ML SYR/VIAL IM ONE (12:26)
--- NOTE | 2018-12-11 12:29 | Post Operative Brief Note ---
Immediate Post Op Note v1 Date of Surgery December 11, 2018 Pre & Post Diagnosis Operation Date: 12/11/18 07:30 Pre-Op Diagnosis: Previous Delivery Post-Op Diagnosis: Previous Delivery; low transverse section; delivery of live female Procedure Operation Date: 12/11/18 07:30 Actual Procedures p Section in LD(Bilateral) - Pan Renae MD Surgeon MD Assistant hannah Jernigan Estimated Blood Loss 750 Findings Consistent with Post-Op Diagnosis Drains Borges Catheter
[2018-12-11] MEDS ORDERED: OXYTOCIN 20 UNITS in LACTATED RINGER'S 1,000 ML IV SCH (13:00)
--- NOTE | 2018-12-11 14:38 | Anesthesiology Progress Note ---
Date of Service December 11, 2018 Anesthesia Post Procedure Vital Signs Vital Signs: Temp Pulse Resp BP Pulse Ox 12/11/18 14:35 69 96 12/11/18 14:30 73 96 12/11/18 14:29 63 117/61 12/11/18 14:25 36.7 C 74 18 96 12/11/18 14:20 74 96 12/11/18 14:15 68 96 12/11/18 14:10 72 96 12/11/18 14:05 62 98 12/11/18 14:00 65 98 12/11/18 13:55 79 18 97 12/11/18 13:53 78 92 12/11/18 13:50 68 97 12/11/18 13:47 77 94 12/11/18 13:45 71 97 12/11/18 13:40 66 94 12/11/18 13:35 63 98 12/11/18 13:30 68 97 12/11/18 13:25 36.7 C 53 L 18 106/60 98 12/11/18 13:20 62 97 12/11/18 13:15 51 L 18 119/60 97 12/11/18 13:10 51 L 97 12/11/18 13:06 67 110/56 L 12/11/18 13:05 67 18 110/56 L 97 12/11/18 13:00 66 97 12/11/18 12:55 66 18 115/65 97 12/11/18 12:50 62 97 12/11/18 12:45 60 18 115/65 97 12/11/18 12:44 73 92 12/11/18 12:40 60 98 12/11/18 12:35 57 L 18 109/54 L 96 12/11/18 12:34 59 L 94 12/11/18 12:30 52 L 97 12/11/18 12:25 36.8 C 59 L 18 116/54 L 95 12/11/18 10:42 63 129/61 97 12/11/18 10:37 78 97 12/11/18 10:32 67 98 12/11/18 10:27 76 98 12/11/18 10:22 59 L 97 12/11/18 10:17 61 98 12/11/18 10:07 60 97 12/11/18 10:02 59 L 94 12/11/18 09:30 18 12/11/18 07:10 36.8 C 18 12/11/18 05:49 37.0 C 67 18 120/70 12/11/18 05:48 67 120/70 Transfer of Care Handoff Completed per policy Notes Mental Status: alert / awake / arousable and participated in evaluation Patient Amnestic to Procedure: No Nausea / Vomiting: adequately controlled Pain: adequately controlled Airway Patency, RR, SpO2: stable & adequate BP & HR: stable & adequate Hydration State: stable & adequate Neuraxial Anesthesia: was administered and sensory block is resolving Anesthetic Complications: no major complications apparent and Pt Satisfied with anesthetic care
[2018-12-11] MEDS: KETOROLAC 30 MG/ML VIAL IV PRN (17:23)
[2018-12-11] MEDS: SIMETHICONE 80 MG CHEW PO SCH ×2 (17:28→20:55)
[2018-12-11] MEDS: DOCUSATE SODIUM 100 MG CAP PO SCH (20:55)
--- NOTE | 2018-12-11 22:58 | Operative Report ---
DATE OF OPERATION: 12/11/2018 INDICATION FOR PROCEDURE: This is a 33-year-old previous section, wishes to have repeat . PREOPERATIVE DIAGNOSES: 1. at term. 2. Previous section, wishes to have repeat. 3. Breech presentation. POSTOPERATIVE DIAGNOSES: 1. at term. 2. Previous section, wishes to have repeat. 3. Breech presentation. PROCEDURE: Repeat section. SURGEON: Pan Renae MD. HANDS ASSEMBLER: Dr. Toñito Becker. ANESTHESIA: Spinal. ANESTHESIOLOGIST: Dr. Cordero. ESTIMATED BLOOD LOSS: 750 mL. IV FLUIDS: 1500 mL. URINE OUTPUT: 100 mL clear urine at end of the procedure. FINDINGS: Live infant in double footling breech presentation. There was nuchal cord which was easily reduced. Details of is in the pediatric record. Uterus, tubes, ovaries appeared grossly normal. Unremarkable pelvic abdominal adhesions from previous. COMPLICATIONS: None. PATHOLOGY: Placenta and cord blood. DISPOSITION: Stable to recovery room. DRAINS: Borges catheter. DESCRIPTION OF PROCEDURE: The patient was taken to the operating room where she was prepped and draped in normal sterile fashion. Timeout was called. A scalpel was used to make a Pfannenstiel incision through the old incision, carried down to the fascia, incised in the midline extended laterally on both sides. The fascia was sharply dissected off the rectus abdominus muscles superiorly and inferiorly. Peritoneum was identified and entered sharply. An Jayme retractor was placed in the abdomen. Findings of the abdomen were as dictated above. The vesicouterine peritoneum was sharply dissected off the lower segment of the uterus. Transverse incision was made and extended on both sides. was footling breech. Breech maneuvers were performed. There was nuchal cord which was easily reduced. was delivered atraumatically and without any difficulty. Cord was cut and clamped and the is handed to the pediatric team. Cord blood was obtained. Placenta was manually removed. Uterus was exteriorized and cleared of all clots and debris. Uterus was closed in 2 layers using plain suture. There was good hemostasis at end of closure. Copious amount of irrigation was used to irrigate the abdomen. Uterus was returned into the abdominal cavity. Vesicouterine peritoneum was reapproximated. Jayme retractor was removed. There was good hemostasis. Peritoneum was closed in a running fashion using plain suture. Muscle was reapproximated using plain suture in loose [id number] manner. The fascia was closed in a running fashion using 0 Vicryl. SubQ was closed with plain suture and skin was closed with doreen. All instruments were removed from the abdomen and accounted for x2 including sponges, retractors. Baby and mother are doing well in recovery. I attest to the content of the Intraoperative Record and any orders documented therein. Any exception s are noted below.
[2018-12-12] MEDS: KETOROLAC 30 MG/ML VIAL IV PRN (01:14)
[2018-12-12] MEDS ORDERED: LACTATED RINGER'S 1,000 ML IV SCH (01:45)
[2018-12-12] MEDS ORDERED: DiphenhydrAMINE HCL 50 MG/ML VIAL IV PRN (05:07)
[2018-12-12] MEDS ORDERED: PROMETHAZINE HCL 25 MG in SODIUM CHLORIDE 0.9% 50 ML IV PRN (05:07)
[2018-12-12] MEDS ORDERED: ZOLPIDEM TARTRATE 5 MG TAB PO PRN (05:07)
[2018-12-12] MEDS ORDERED: ONDANSETRON INJ 2 MG/ML 2 ML VIAL IV PRN (05:07)
[2018-12-12] MEDS: OXYCODONE/ACETAMINOPHEN 5mg/325mg TAB PO PRN ×4 (05:31→19:59)
[2018-12-12] MEDS: IBUPROFEN 600 MG TAB PO PRN ×4 (05:31→19:59)
--- NOTE | 2018-12-12 06:35 | Obstetrical Progress Note ---
Date of Service December 12, 2018 Assessment & Plan (1) delivery delivered: POD #1 Pt doing well no complaints continue day #1 care AM labs pending Subjective Ambulation: ambulating normally Voiding: no voiding problems Passing Gas:: Yes Diet Tolerance:: clear liquids Lochia:: Small Feeding Type:: breast feeding Review of Systems All systems reviewed & are unremarkable except as noted in HPI & below Physical Exam Vital Signs (Past 24 Hours) Last Vital Signs Temp 36.8 C 12/12/18 03:50 Pulse 72 12/12/18 03:50 Resp 18 12/12/18 04:30 BP 104/79 12/12/18 03:50 Pulse Ox 94 12/12/18 04:30 Constitutional WD/WN, vitals as above well developed and well nourished Eyes PERRL, conjunctivae normal, anicteric sclerae ENMT external ear and nose normal, oropharynx normal Neck trachea midline, no thyromegaly Respiratory normal respiratory effort, lungs clear to auscultation Cardiovascular RRR, no murmur, no edema Chest (Breasts) normal inspection/palpation of breasts Gastrointestinal (Abdomen) normal bowel sounds, soft, nontender, no hepatosplenomegaly Musculoskeletal no cyanosis or clubbing, extremities motor strength 5/5 Skin no rashes, warm and dry + incision (Clean,dry and intact) Neurologic patellar DTR's 2+ bilat, sensation intact Psychiatric A+Ox3, euthymic affect Genitourinary normal external appearance Lymphatic no cervical or axillary lymphadenopathy
[2018-12-12 06:40] LABS: Basophils # (auto) 0.01 K/uL (0-0.2); Basophils % (auto) 0.1 %; Eosinophils # (auto) 0.05 K/uL (0-0.5); Eosinophils % (auto) 0.4 %; Hematocrit (blood only) 29.9 % (37-47); Hemoglobin 10.6 g/dL (12.0-16.0); Immature Granulocytes # (auto) 0.03 K/uL (0.00-0.02); Immature Granulocytes % (auto) 0.3 %; Lymphocytes # (auto) 1.31 K/uL (1.2-3.4); Lymphocytes % (auto) 11.8 %; Mean Corpuscular Hgb Conc 35.5 g/dL (32-36); Mean Corpuscular Volume 85.9 fL (80-100); Mean Platelet Volume 9.9 fL (7.4-10.4); Monocytes # (auto) 0.88 K/uL (0.11-0.59); Monocytes % (auto) 7.9 %; Neutrophils # (auto) 8.85 K/uL (1.4-6.5); Neutrophils % (auto) 79.5 %; Platelet Count 105 K/uL (130-400); RDW Coefficient of Variation 13.8 % (11.5-14.5); RDW Standard Deviation 43.1 fL (36.4-46.3); Red Blood Count 3.48 M/uL (4.2-5.4); White Blood Count 11.13 K/uL (4.8-10.8)
[2018-12-12] MEDS: SIMETHICONE 80 MG CHEW PO SCH ×4 (08:40→19:59)
[2018-12-12] MEDS: PRENATAL VITAMIN 1 TAB PO SCH (08:40)
[2018-12-12] MEDS: FERROUS SULFATE 325 MG TAB PO SCH (08:40)
[2018-12-12] MEDS: DOCUSATE SODIUM 100 MG CAP PO SCH ×2 (08:40→19:59)
--- NOTE | 2018-12-12 10:43 | Anesthesiology Progress Note ---
Date of Service December 12, 2018 Anesthesia Post Procedure Vital Signs Vital Signs: Temp Pulse Pulse Resp BP BP Pulse Ox 12/12/18 07:55 36.7 C 80 16 135/85 98 12/12/18 04:30 18 94 12/12/18 03:50 36.8 C 72 18 104/79 96 12/12/18 03:30 18 98 12/12/18 02:30 18 96 12/12/18 01:30 18 98 12/12/18 00:30 18 99 12/12/18 00:05 37.1 C 66 18 106/72 98 12/11/18 23:30 18 99 12/11/18 22:30 18 99 12/11/18 21:30 18 99 12/11/18 20:30 18 98 12/11/18 19:30 37 C 62 18 109/72 97 12/11/18 18:16 18 96 12/11/18 17:31 18 94 12/11/18 16:30 18 97 12/11/18 15:30 36.5 C 69 18 126/79 96 12/11/18 14:55 66 97 12/11/18 14:50 64 96 12/11/18 14:45 72 96 12/11/18 14:40 59 L 97 12/11/18 14:35 69 96 12/11/18 14:30 73 96 12/11/18 14:29 63 117/61 12/11/18 14:25 36.7 C 74 18 96 12/11/18 14:20 74 96 12/11/18 14:15 68 96 12/11/18 14:10 72 96 12/11/18 14:05 62 98 12/11/18 14:00 65 98 12/11/18 13:55 79 18 97 12/11/18 13:53 78 92 12/11/18 13:50 68 97 12/11/18 13:47 77 94 12/11/18 13:45 71 97 12/11/18 13:40 66 94 12/11/18 13:35 63 98 12/11/18 13:30 68 97 12/11/18 13:25 36.7 C 53 L 18 106/60 98 12/11/18 13:20 62 97 12/11/18 13:15 51 L 18 119/60 97 12/11/18 13:10 51 L 97 12/11/18 13:06 67 110/56 L 12/11/18 13:05 67 18 110/56 L 97 12/11/18 13:00 66 97 12/11/18 12:55 66 18 115/65 97 12/11/18 12:50 62 97 12/11/18 12:45 60 18 115/65 97 12/11/18 12:44 73 92 12/11/18 12:40 60 98 12/11/18 12:35 57 L 18 109/54 L 96 12/11/18 12:34 59 L 94 12/11/18 12:30 52 L 97 12/11/18 12:25 36.8 C 59 L 18 116/54 L 95 Pain Intensity Bilateral Lower Abdomen: Pain Intensity: 1 Transfer of Care Handoff Completed per policy Notes Mental Status: alert / awake / arousable and participated in evaluation Nausea / Vomiting: adequately controlled Pain: adequately controlled Airway Patency, RR, SpO2: stable & adequate BP & HR: stable & adequate Hydration State: stable & adequate Neuraxial Anesthesia: was administered and sensory block resolved Anesthetic Complications: no major complications apparent and Pt Satisfied with anesthetic care Notes: Patient reports mild, non-positional headache this AM. Has been up walking without weakness or residual numbness. Patient encouraged to contact anesthesia for any concerns or new headache
[2018-12-12] MEDS ORDERED: BISACODYL 5 MG TABEC PO SCH (20:00)
[2018-12-13] MEDS: IBUPROFEN 600 MG TAB PO PRN ×3 (01:21→12:20)
[2018-12-13] MEDS: OXYCODONE/ACETAMINOPHEN 5mg/325mg TAB PO PRN ×3 (01:22→12:20)
[2018-12-13 06:38] LABS: Hematocrit (blood only) 27.5 % (37-47); Hemoglobin 9.9 g/dL (12.0-16.0)
[2018-12-13] MEDS: FERROUS SULFATE 325 MG TAB PO SCH (08:29)
[2018-12-13] MEDS: PRENATAL VITAMIN 1 TAB PO SCH (08:29)
[2018-12-13] MEDS: DOCUSATE SODIUM 100 MG CAP PO SCH (08:29)
[2018-12-13] MEDS: SIMETHICONE 80 MG CHEW PO SCH ×2 (08:29→12:19)
--- NOTE | 2018-12-13 09:29 | Obstetrical Progress Note ---
Date of Service December 13, Assessment & Plan (1) delivery delivered: Pt doing well No complaints POD #3 disch home with instructions Subjective Ambulation: ambulating normally Voiding: no voiding problems Passing Gas:: Yes Diet Tolerance:: clear liquids Lochia:: Small Feeding Type:: breast feeding Review of Systems All systems reviewed & are unremarkable except as noted in HPI & below Physical Exam Vital Signs (Past 24 Hours) Last Vital Signs Temp 36.7 C 12/13/18 07:56 Pulse 53 L 12/13/18 07:56 Resp 16 12/13/18 07:56 BP 100/60 12/13/18 07:56 Pulse Ox 99 12/13/18 07:56 Constitutional WD/WN, vitals as above well developed and well nourished Eyes PERRL, conjunctivae normal, anicteric sclerae ENMT external ear and nose normal, oropharynx normal Neck trachea midline, no thyromegaly Respiratory normal respiratory effort, lungs clear to auscultation Cardiovascular RRR, no murmur, no edema Chest (Breasts) normal inspection/palpation of breasts Gastrointestinal (Abdomen) normal bowel sounds, soft, nontender, no hepatosplenomegaly Musculoskeletal no cyanosis or clubbing, extremities motor strength 5/5 Skin no rashes, warm and dry + incision (Clean,dry and intact) Neurologic patellar DTR's 2+ bilat, sensation intact Psychiatric A+Ox3, euthymic affect Genitourinary normal external appearance Lymphatic no cervical or axillary lymphadenopathy
[2018-12-13] MEDS ORDERED: BISACODYL 10 MG SUPP PR PRN (12:26)
--- NOTE | 2018-12-14 10:21 | Discharge Summary ---
CHIEF COMPLAINT: 1. at term. 2. Previous section, wishes to have repeat . 3. Breech presentation. POSTOPERATIVE DIAGNOSES: 1. at term. 2. Previous section, wishes to have repeat . 3. Breech presentation. HISTORY OF PRESENT ILLNESS: This is a 33-year-old G2, P1, due date was 12/12/2018, presented to labor and delivery on 12/11/2018 at 39 weeks and 6 days for repeat section. On arrival to labor and delivery, she has no shortness of breath, no chills, no fever, no rupture of membranes. was breech. The patient underwent scheduled section to deliver a live infant. Weight and Apgars in the pediatric record. Details of surgery is in the operative record as well. Surgery was unremarkable. The patient met all milestones in recovery. On postop day 1 and 2, the patient continued to do well, was able to ambulate, tolerated p.o. food and meds. The patient was discharged home in stable condition on 12/13/2018. PAST MEDICAL HISTORY: No history of diabetes, hypertension or asthma. PAST SURGICAL HISTORY: History of section. ALLERGIES: THE PATIENT IS ALLERGIC TO IBUPROFEN. FAMILY HISTORY: Noncontributory. SOCIAL HISTORY: The patient denies tobacco, drug or alcohol use. REVIEW OF SYSTEMS: Negative except as dictated in the HPI. PHYSICAL EXAMINATION: VITAL SIGNS: Vitals on 12/13/2018 showed a blood pressure of 115/78, pulse of 53, respirations of 16, temperature of 36.7. HEART: S1, S2, regular rhythm and rate. LUNGS: Clear to auscultation bilaterally. ABDOMEN: Nontender, nondistended, positive bowel sounds. Incision was clean, dry and intact. EXTREMITIES: No cyanosis, clubbing, edema. LABORATORY DATA: Labs on 12/13/2018 showed a hemoglobin of 9.9, hematocrit of 37.5. CONDITION ON DISCHARGE: Stable. OPERATION: Repeat section. DISCHARGE DIAGNOSIS: Postop section. PLAN ON DISCHARGE: The patient is discharged home with instructions regarding activity, diet, followup appointment and medication.
== END 2018-12-13 13:02 | disposition home or self-care (01) | DRG 788 ==
LOC: 4S1 05:41 → EDSTATUS 07:30 → 4S2 15:00

== ENCOUNTER 2021-05-18 05:32 | Inpatient (IN) ==
--- NOTE | 2021-05-11 09:08 | Anesthesiology Consultation ---
Date of Service May 11, 2021 Assessment & Plan (1) Encounter for pre-operative examination: COVID screening: Per assessment on 05/10: Travel screen negative, no known COVID-19 positive contacts or current COVID-19 related symptoms. Surgeon arranging preop COVID testing. Awaiting results. Chart Review Chart Review: entry rep initiated History Surgery Operation Date: 05/18/21 07:30 Proposed Procedures p Section in LD - Pan Renae MD Height/Weight Height: 5 ft 6.75 in Weight: 112.491 kg Allergies Allergy/AdvReac Type Severity Reaction Status Date / Time ibuprofen Allergy Intermediate Swelling Verified 05/11/21 09:06 (to red dye/coating on tablet) Medications Home Medications Medication Instructions Recorded Confirmed Last Taken fluticasone furoate 27.5 1 spray INTRANASAL DAILY PRN 11/20/18 05/10/21 Unknown mcg/actuation nasal spray,suspension (Flonase Sensimist) vit no.95-ferrous 1 tab PO QAM 11/20/18 05/10/21 Unknown fumarate 28 mg-folic acid 800 mcg tablet () ferrous sulfate 325 mg (65 mg 325 mg PO QAM #30 tab 12/13/18 05/10/21 Unknown iron) tablet,delayed release Past Medical History Medical History No known health problems Past Family History Family History Grandfather (Maternal) Family history of diabetes mellitus Other No family history of adverse response to anesthesia Past Surgical History Surgical History History of section x2 (2016, 2018) Repeat (12/11/18): SAB at L4-L5 (x1 attempt) at [facility] History of tooth extraction WTE Social History Smoking Status: Never smoker Do You Dip or Chew Tobacco: No Hx Alcohol Use: No Alcohol type: wine Hx Substance Use: No substance use type: does not use
[2021-05-18 05:51] LABS: Basophils # (auto) 0.01 K/uL (0-0.2); Basophils % (auto) 0.1 %; Eosinophils # (auto) 0.12 K/uL (0-0.5); Eosinophils % (auto) 1.1 %; Hematocrit (blood only) 38.8 % (37-47); Hemoglobin 13.8 g/dL (12.0-16.0); Immature Granulocytes # (auto) 0.03 K/uL (0.00-0.02); Immature Granulocytes % (auto) 0.3 %; Lymphocytes # (auto) 1.85 K/uL (1.2-3.4); Lymphocytes % (auto) 16.7 %; Mean Corpuscular Hemoglobin 31.3 pg (25-34); Mean Corpuscular Hgb Conc 35.6 g/dL (32-36); Mean Platelet Volume 11.1 fL (7.4-10.4); Monocytes # (auto) 0.84 K/uL (0.11-0.59); Monocytes % (auto) 7.6 %; Neutrophils # (auto) 8.22 K/uL (1.4-6.5); Neutrophils % (auto) 74.2 %; Platelet Count 159 K/uL (130-400); RDW Standard Deviation 45.4 fL (36.4-46.3); Red Blood Count 4.41 M/uL (4.2-5.4); White Blood Count 11.07 K/uL (4.8-10.8)
[2021-05-18] MEDS ORDERED: CITRIC ACID/SODIUM CITRATE 15 ML UDC PO SCH (06:00)
[2021-05-18] MEDS ORDERED: LACTATED RINGER'S 1,000 ML IV SCH ×2 (06:00→09:30)
[2021-05-18] MEDS ORDERED: MoRPHine SULFATE PF 1 MG/ML 10 ML AMP/VIAL ONE (07:17)
[2021-05-18] MEDS ORDERED: ONDANSETRON INJ 2 MG/ML 2 ML VIAL IV PRN (07:30)
[2021-05-18] MEDS ORDERED: NALOXONE HCL 1 MG in SODIUM CHLORIDE 0.9% 1000ML 1,000 ML IV PRN (07:30)
[2021-05-18] MEDS ORDERED: DC INTRASPINAL MORPHINE SCH (07:30)
[2021-05-18] MEDS ORDERED: MEPERIDINE HCL 25 MG/ML CARP/VIAL IV PRN (07:30)
[2021-05-18] MEDS ORDERED: SODIUM CHLORIDE 0.9% 1000ML 1,000 ML IV SCH (07:30)
[2021-05-18] MEDS ORDERED: MoRPHine SULFATE 2 MG/ML CARP IV PRN (07:30)
[2021-05-18] MEDS ORDERED: diphenhydrAMINE 50 MG/ML VIAL IV PRN (07:30)
[2021-05-18] MEDS ORDERED: ePHEDrine sulfate 50 MG/ML AMP IV PRN (07:30)
[2021-05-18] MEDS ORDERED: NALOXONE HCL 0.08 MG in SYRINGE 1.8 ML IV PRN (07:30)
[2021-05-18] MEDS ORDERED: NO NARCOTICS OR SEDATIVES SCH (07:30)
[2021-05-18] MEDS ORDERED: PROMETHAZINE HCL 12.5 MG in SODIUM CHLORIDE 0.9% 50 ML IV PRN (07:30)
[2021-05-18] MEDS ORDERED: NALBUPHINE HCL INJ 10 MG/ML AMP IV PRN (07:30)
[2021-05-18] MEDS ORDERED: LACTATED RINGER'S 500 ML IV PRN (07:30)
[2021-05-18] MEDS ORDERED: NALOXONE HCL 0.4 MG/1 ML VIAL/CARP IV PRN (07:30)
[2021-05-18] MEDS ORDERED: METOCLOPRAMIDE HCL 10 MG in SODIUM CHLORIDE 0.9% 50 ML IV PRN (07:30)
[2021-05-18] MEDS ORDERED: HYDROmorphone INJ 0.5 MG/0.5 ML SYR IV PRN (07:30)
[2021-05-18] MEDS ORDERED: MoRPHine SULFATE PF 1 MG/ML 10 ML AMP/VIAL INT SPINAL ONE (07:30)
--- NOTE | 2021-05-18 07:40 | History & Physical Bridge Note ---
Date of Service May 18, 2021 History & Physical Bridge Note I have examined the patient, reviewed the History & Physical and in the interval since the performance of the History & Physical I have noted the following changes of clinical significance: no changes noted
[2021-05-18] MEDS ORDERED: miSOPROStoL 200 MCG TAB ONE (08:29)
[2021-05-18] MEDS ORDERED: OXYTOCIN 10 UNITS/ML VIAL ONE (08:58)
[2021-05-18] MEDS ORDERED: ePHEDrine sulfate 50 MG/ML SYR ONE (08:58)
[2021-05-18] MEDS ORDERED: PHENYLEPHRINE 100MCG/ML 5ML SYR ONE (08:58)
[2021-05-18] MEDS ORDERED: SENNA 8.6 MG TAB PO PRN (09:21)
[2021-05-18] MEDS ORDERED: BENZOCAINE 20% AER SPR 82.5 GM CAN EXT PRN (09:21)
[2021-05-18] MEDS ORDERED: HYDROCORTISONE ACETATE 25 MG SUPP PR PRN (09:21)
[2021-05-18] MEDS ORDERED: SUPERCREAM 0.870% 15 GM JAR EXT PRN (09:21)
[2021-05-18] MEDS ORDERED: DIPHTHERIA/TETANUS/PERTUSSIS 0.5 ML SYR/VIAL IM ONE (09:21)
[2021-05-18] MEDS ORDERED: MAGNESIUM HYDROXIDE SUSP 30 ML UDC PO PRN (09:21)
--- NOTE | 2021-05-18 10:23 | Anesthesiology Progress Note ---
Date of Service May 18, 2021 Anesthesia Post Procedure Vital Signs Vital Signs: Temp Pulse Resp BP Pulse Ox 05/18/21 10:21 82 100 05/18/21 10:16 91 H 156/62 H 100 05/18/21 10:00 67 18 128/69 05/18/21 09:50 97 H 20 116/65 05/18/21 09:40 94 H 20 120/74 05/18/21 09:32 88 126/64 05/18/21 09:30 74 20 100 05/18/21 09:25 70 100 05/18/21 09:20 61 20 125/65 100 05/18/21 09:15 63 100 05/18/21 09:10 36.4 C L 70 20 128/68 100 05/18/21 05:50 73 141/85 H 05/18/21 05:46 37.0 C 18 Transfer of Care Handoff Completed per policy Notes Mental Status: alert / awake / arousable and participated in evaluation Patient Amnestic to Procedure: Yes Nausea / Vomiting: adequately controlled Pain: adequately controlled Airway Patency, RR, SpO2: stable & adequate BP & HR: stable & adequate Hydration State: stable & adequate Neuraxial Anesthesia: was administered and sensory block is resolving Anesthetic Complications: no major complications apparent
[2021-05-18] MEDS ORDERED: OXYTOCIN 20 UNITS in LACTATED RINGER'S 1,000 ML IV SCH (10:30)
[2021-05-18] MEDS ORDERED: OXYTOCIN 10 UNITS/ML VIAL IM ONE (13:13)
--- NOTE | 2021-05-18 14:13 | Operative Report (OR) ---
DATE OF PROCEDURE: 05/18/2021 INDICATION FOR SURGERY: This is a 35-year-old 3, para 2, at term, prior section, wishes to have repeat . PREOPERATIVE DIAGNOSES: 1. at term. 2. Previous section, wishes to have repeat section. POSTOPERATIVE DIAGNOSES: 1. at term. 2. Previous section, wishes to have repeat section. SURGEON: Pan Renae MD. POWER MARKETER: Kendal Flynn for Assistance; Freelance Photographer was necessary for retraction and manipulation in order to facilitate a same procedure . ANESTHESIA: Spinal. ESTIMATED BLOOD LOSS: 600 mL. INTRAVENOUS FLUIDS: 1000 mL. URINE OUTPUT: 150 mL of clear urine at the end of procedure. SPECIMEN: Cord blood and placenta. COMPLICATIONS: None. DRAINS: Borges catheter. FINDINGS: Normal female escutcheon. Laparotomy findings shows uterus and adnexa appeared grossly normal. There was moderate amount of adhesions, which was carefully dissected. DISPOSITION: Stable to recovery room. DESCRIPTION OF PROCEDURE: The patient was taken to the operating room where she was prepped and draped in normal sterile fashion in lithotomy position. A Pfannenstiel incision was made through the old scar and carried down to the fascia with a scalpel. Fascia was incised in the midline and extended laterally on both sides. The fascia was sharply dissected off the rectus abdominis muscle superiorly and inferiorly. Peritoneum was identified and entered sharply. Once inside the abdomen, the findings as dictated above. An Jayme retractor was placed for retraction. The vesicouterine peritoneum was sharply dissected off the lower uterine segment that a low transverse incision was made on the uterus and extended laterally on both sides. Amniotomy was performed. A Victus retractor was used to deliver the infant. 's weight and Apgars in the pediatric record. Cord was clamped and cut. Cord blood was obtained. Placenta was manually removed. The uterus was exteriorized and cleared of all clots and debris. Uterus was closed in 2 layers using Vicryl stitch. There was good hemostasis post-repair. The bladder flap was reapproximated using plain sutures. Uterus was returned into the abdominal cavity. Copious amount of irrigation was used to irrigate the abdomen. There was good hemostasis. The peritoneum was closed using plain suture, loose [id number] was used to approximate the rectus abdominis muscle using the plain suture. Fascia was closed in a running fashion using Vicryl stitch. Subcutaneous space was irrigated and approximated with plain suture, skin was closed with doreen. All instruments were removed from the abdomen and vagina and accounted for x2 including sponges, needles, and retractors. The patient is sent to recovery in stable condition. Job ID: [id number] [facility]
[2021-05-18] MEDS: SIMETHICONE 80 MG CHEW PO SCH ×2 (17:00→21:01)
[2021-05-18] MEDS: DOCUSATE SODIUM 100 MG CAP PO SCH (21:01)
[2021-05-19] MEDS ORDERED: ZOLPIDEM TARTRATE 5 MG TAB PO PRN (01:30)
[2021-05-19] MEDS ORDERED: ONDANSETRON INJ 2 MG/ML 2 ML VIAL IV PRN (01:30)
[2021-05-19] MEDS ORDERED: diphenhydrAMINE 50 MG/ML VIAL IV PRN (01:30)
[2021-05-19] MEDS ORDERED: diphenhydrAMINE Capsule 25 MG CAP PO PRN (01:30)
[2021-05-19] MEDS ORDERED: PROMETHAZINE HCL 25 MG in SODIUM CHLORIDE 0.9% 50 ML IV PRN (01:30)
[2021-05-19] MEDS: oxyCODONE/ACETAMINOPHEN 5mg/325mg TAB PO PRN ×4 (01:32→16:24)
[2021-05-19] MEDS: IBUPROFEN 600 MG TAB PO PRN ×4 (01:32→16:23)
[2021-05-19 07:32] LABS: Hematocrit (blood only) 28.8 % (37-47); Hemoglobin 9.9 g/dL (12.0-16.0); Mean Corpuscular Hemoglobin 30.7 pg (25-34); Mean Corpuscular Hgb Conc 34.4 g/dL (32-36); Mean Corpuscular Volume 89.2 fL (80-100); Mean Platelet Volume 10.7 fL (7.4-10.4); Platelet Count 123 K/uL (130-400); RDW Coefficient of Variation 14.1 % (11.5-14.5); RDW Standard Deviation 46.5 fL (36.4-46.3); Red Blood Count 3.23 M/uL (4.2-5.4); White Blood Count 11.84 K/uL (4.8-10.8)
[2021-05-19 07:50] LABS: Basophils # (auto) 0.01 K/uL (0-0.2); Basophils % (auto) 0.1 %; Eosinophils # (auto) 0.07 K/uL (0-0.5); Eosinophils % (auto) 0.6 %; Immature Granulocytes # (auto) 0.04 K/uL (0.00-0.02); Immature Granulocytes % (auto) 0.3 %; Lymphocytes # (auto) 1.39 K/uL (1.2-3.4); Lymphocytes % (auto) 11.7 %; Monocytes % (auto) 5.9 %; Neutrophils # (auto) 9.63 K/uL (1.4-6.5); Neutrophils % (auto) 81.4 %
[2021-05-19] MEDS: FERROUS SULFATE 325 MG TAB PO SCH (08:04)
[2021-05-19] MEDS: PRENATAL VITAMIN 1 TAB PO SCH (08:04)
[2021-05-19] MEDS: DOCUSATE SODIUM 100 MG CAP PO SCH ×2 (08:04→20:34)
[2021-05-19] MEDS: SIMETHICONE 80 MG CHEW PO SCH ×4 (08:04→20:34)
--- NOTE | 2021-05-19 09:35 | Obstetrical Progress Note ---
Date of Service May 19, 2021 Assessment & Plan Admission and Anticipated Discharge Date Admission Date: May 18, 2021 Subjective Patient is seen and examined. She feels well, no complaints. Pain is under control with oral meds. Ambulating without dizziness Voiding without difficulty Tolerating regular diet with out N&V Flatus + BM neg Bleeding is minimal No fever/ chills/ CP/ SOB/ N&V/ Leg pain Breast feeding without problems Lab Results 05/18/21 05/18/21 05/19/21 Range/Units 05:40 05:40 06:28 WBC 11.07 H 11.84 H (4.8-10.8) K/uL RBC 4.41 3.23 L (4.2-5.4) M/uL Hgb 13.8 9.9 L D (12.0-16.0) g/dL Hct 38.8 28.8 L (37-47) % MCV 88.0 89.2 (80-100) fL MCH 31.3 30.7 (25-34) pg MCHC 35.6 34.4 (32-36) g/dL RDW Std Deviation 45.4 46.5 H (36.4-46.3) fL RDW Coeff of Jm 14.0 14.1 (11.5-14.5) % Plt Count 159 123 L (130-400) K/uL MPV 11.1 H 10.7 H (7.4-10.4) fL Immature Gran % (Auto) 0.3 0.3 % Neut % (Auto) 74.2 81.4 % Lymph % (Auto) 16.7 11.7 % Roberts % (Auto) 7.6 5.9 % Eos % (Auto) 1.1 0.6 % Baso % (Auto) 0.1 0.1 % Neut # (Auto) 8.22 H 9.63 H (1.4-6.5) K/uL Lymph # (Auto) 1.85 1.39 (1.2-3.4) K/uL Roberts # (Auto) 0.84 H 0.70 H (0.11-0.59) K/uL Eos # (Auto) 0.12 0.07 (0-0.5) K/uL Baso # (Auto) 0.01 0.01 (0-0.2) K/uL Immature Gran # (Auto) 0.03 H 0.04 H (0.00-0.02) K/uL Blood Type A Positive Antibody Screen NEGATIVE Vital Signs Temp Pulse Resp BP Pulse Ox 05/19/21 03:10 36.9 C 81 18 133/78 99 05/19/21 01:30 18 99 05/19/21 00:10 18 99 05/18/21 23:25 37.0 C 75 18 122/75 99 05/18/21 22:00 18 99 PE: General: Alert, orientedx3, NAD CVS: S1S2 RRR Lungs; CTAB Abd: soft, NT, ND, BS+, fundus firm, below Umbilicus Incision/ doreen: Clean, dry, intact Perineum intact, Lochia rubra minimal Ext; NT, no edema AP: 35 yo s/p RC Section, pod# 1 VSS Afebrile doing well Continue routine postop care Encourage ambulation, PO intake All questions were answered Results & Data ([facility]) Vital Signs (Past 12 Hours) Vital Signs Temp Pulse Resp BP Pulse Ox 05/19/21 03:10 36.9 C 81 18 133/78 99 05/19/21 01:30 18 99 05/19/21 00:10 18 99 05/18/21 23:25 37.0 C 75 18 122/75 99 05/18/21 22:00 18 99
[2021-05-19] MEDS ORDERED: bisacodyL 5 MG TABEC PO SCH (20:00)
[2021-05-20] MEDS: IBUPROFEN 600 MG TAB PO PRN ×2 (00:09→07:48)
[2021-05-20] MEDS: oxyCODONE/ACETAMINOPHEN 5mg/325mg TAB PO PRN ×2 (00:09→07:47)
[2021-05-20] MEDS: SIMETHICONE 80 MG CHEW PO SCH ×2 (03:00→07:46)
[2021-05-20 07:10] LABS: Hematocrit (blood only) 31.6 % (37-47); Hemoglobin 10.7 g/dL (12.0-16.0)
[2021-05-20] MEDS: FERROUS SULFATE 325 MG TAB PO SCH (07:46)
[2021-05-20] MEDS: DOCUSATE SODIUM 100 MG CAP PO SCH (07:46)
[2021-05-20] MEDS: PRENATAL VITAMIN 1 TAB PO SCH (07:47)
[2021-05-20] MEDS ORDERED: bisacodyL 10 MG SUPP PR PRN (09:21)
--- NOTE | 2021-05-20 10:33 | Obstetrical Progress Note ---
Date of Service May 20, 2021 Subjective Ambulation: ambulating normally Voiding: no voiding problems Passing Gas:: Yes Diet Tolerance:: regular diet Lochia:: Small Feeding Type:: breast feeding Current Pain Level(1-10): 0 doing well planning for d/c Physical Exam Constitutional WD/WN, vitals as above comfortable abdomen soft and non-tender fundus firm incision c/d/i no edema neg Janae's for d/c today Results & Data ([facility]) Vital Signs (Past 12 Hours) Vital Signs Temp Pulse Resp BP Pulse Ox 05/20/21 10:19 36.8 C 92 H 18 132/82 99 05/20/21 07:45 36.8 C 92 H 18 132/82 99 05/19/21 23:50 36.8 C 84 18 123/79 99 Laboratory Results Laboratory Results - last 72 hr 05/18/21 05/18/21 05/19/21 05:40 05:40 06:28 WBC 11.07 H 11.84 H RBC 4.41 3.23 L Hgb 13.8 9.9 L D Hct 38.8 28.8 L MCV 88.0 89.2 MCH 31.3 30.7 MCHC 35.6 34.4 RDW Std Deviation 45.4 46.5 H RDW Coeff of Jm 14.0 14.1 Plt Count 159 123 L MPV 11.1 H 10.7 H Immature Gran % (Auto) 0.3 0.3 Neut % (Auto) 74.2 81.4 Lymph % (Auto) 16.7 11.7 Valley % (Auto) 7.6 5.9 Eos % (Auto) 1.1 0.6 Baso % (Auto) 0.1 0.1 Neut # (Auto) 8.22 H 9.63 H Lymph # (Auto) 1.85 1.39 Valley # (Auto) 0.84 H 0.70 H Eos # (Auto) 0.12 0.07 Baso # (Auto) 0.01 0.01 Immature Gran # (Auto) 0.03 H 0.04 H Blood Type A Positive Antibody Screen NEGATIVE 05/20/21 06:51 WBC RBC Hgb 10.7 L Hct 31.6 L MCV MCH MCHC RDW Std Deviation RDW Coeff of Jm Plt Count MPV Immature Gran % (Auto) Neut % (Auto) Lymph % (Auto) Valley % (Auto) Eos % (Auto) Baso % (Auto) Neut # (Auto) Lymph # (Auto) Valley # (Auto) Eos # (Auto) Baso # (Auto) Immature Gran # (Auto) Blood Type Antibody Screen
--- NOTE | 2021-05-25 23:17 | Discharge Summary (DS) ---
DATE OF ADMISSION: 05/18/2021. DATE OF DISCHARGE: 05/20/2021. CHIEF COMPLAINT: 1. at term. 2. Prior section, wishes to have repeat . HISTORY OF PRESENT ILLNESS: This is a 35-year-old G3, P2 with prior section, who wishes to have repeat . The patient was admitted to [facility] on 05/18/2021 and un derwent repeat section. Details of surgery and pediatric information are in respective olga rds. The patient did well in surgery, met all milestones in recovery, and was discharged home in sta ble condition on 05/20/2021. PAST MEDICAL HISTORY: The patient had no history of diabetes, hypertension, or asthma. PAST SURGICAL HISTORY: The patient had previous history of section and dental procedures. SOCIAL HISTORY: , lives with family and two children. FAMILY HISTORY: Noncontributory. ALLERGIES: THE PATIENT HAS REPORTED ALLERGY TO IBUPROFEN. REVIEW OF SYSTEMS: Negative except as dictated in the HPI. PHYSICAL EXAMINATION: VITAL SIGNS: Vitals on 05/20/2021 showed a blood pressure of 132/82, pulse of 92, respiration of 18, temperature of 36.8. GENERAL: A well-developed, well-nourished female in no acute distress. HEART: S1 and S2, regular rhythm and rate. LUNGS: Clear to auscultation bilaterally. No wheezes, crackles, or rales. ABDOMEN: Positive bowel sounds. Incision is clean, dry, and intact. EXTREMITIES: No cyanosis or clubbing. A +1 edema. LABORATORY DATA: On 05/20/2021 showed hemoglobin of 10.7, hematocrit of 31.6. CONDITION ON DISCHARGE: Stable. OPERATIONS: Repeat section. DISCHARGE DIAGNOSIS: Postoperative after repeat section. PLAN ON DISCHARGE: The patient is discharged home with instructions regarding activity, diet, follow up appointment, and medications. Job ID: [id number]
== END 2021-05-20 11:30 | disposition home or self-care (01) | DRG 788 ==
LOC: 4S1 05:32 → EDSTATUS 07:30 → 4S2 11:54